=== PATIENT | male | born 1980 | race Two or more races ===

== ENCOUNTER 2022-05-03 11:42 | Emergency (ER) | payer SELFPAY ==
[~2022-05-03] VITALS: Ht 172.7 cm; Wt 95.5 kg
[2022-05-03] MEDS ORDERED: HYDR-4870 PO (11:51)
[2022-05-03] MEDS ORDERED: [UNRECOGNIZED DRUG - REMARK] PO (11:51)
[2022-05-03] MEDS ORDERED: IBUPROFEN 600 MG TABLET PO ONE (12:30)
[2022-05-03] MEDS ORDERED: ValACYclovir HCL 500 MG TABLET PO ONE (12:30)
[2022-05-03] MEDS ORDERED: CEPHALEXIN MONOHYDRATE 500 MG CAPSULE PO ONE (12:30)
[2022-05-03] MEDS ORDERED: BACITRACIN 0.9 GM PACKET OINTMENT TP ONE (12:30)
[2022-05-03 12:53] VITALS: BP 171/133
[2022-05-03] MEDS ORDERED: VALA500T PO (13:04)
[2022-05-03] MEDS ORDERED: BACI28OI29 TP (13:04)
[2022-05-03] MEDS ORDERED: CEPH-558 PO (13:04)
[2022-05-03] MEDS ORDERED: HYDR-4723 PO (13:04)
== END 2022-05-03 13:24 | disposition home or self-care (01) ==
LOC: EMS 11:42
DX: B02.9 Zoster without complications (principal); L03.221 Cellulitis of neck; I10 Essential (primary) hypertension; F17.210 Nicotine dependence, cigarettes, uncomplicated; Z79.899 Other long term (current) drug therapy
CPT/HCPCS: 99284; Z7502; Z7610

== ENCOUNTER 2022-05-09 11:38 | Emergency (ER) | payer SELFPAY ==
[~2022-05-09] VITALS: Ht 172.7 cm; Wt 91.4 kg
[~2022-05-09 11:38] MED LIST: BACI28OI29 TP; CEPH-558 PO; HYDR-4723 PO; HYDR25TA2 PO; VALA500T PO; [UNRECOGNIZED DRUG - REMARK] PO
[2022-05-09] MEDS ORDERED: MUPI1OIN5 TP (14:15)
[2022-05-09] MEDS ORDERED: ACYC-138 PO (14:15)
[2022-05-09] MEDS ORDERED: DOXY-354 PO (14:15)
[2022-05-09 14:33] VITALS: BP 160/98
== END 2022-05-09 15:36 | disposition home or self-care (01) ==
LOC: EMS 11:38
DX: B02.9 Zoster without complications (principal); L98.8 Other specified disorders of the skin and subcutaneous tissue; I10 Essential (primary) hypertension; F17.210 Nicotine dependence, cigarettes, uncomplicated; Z79.899 Other long term (current) drug therapy
CPT/HCPCS: 99285; Z7502